=== PATIENT | male | born 1985 | race Caucasian/White ===

== ENCOUNTER 2021-09-06 21:04 | Emergency (ER) | payer BC ==
[2021-09-06] MEDS ORDERED: Morphine 4 MG/ML VIAL ONE (22:15)
[2021-09-06] MEDS ORDERED: Ondansetron PF 4 MG/2 ML Vial ONE (22:15)
[2021-09-06] MEDS ORDERED: HYDROmorphone 0.5 MG/0.5 ML SYRINGE ONE (22:17)
== END 2021-09-07 00:45 | disposition home or self-care (01) ==
LOC: CSHERS 21:04
DX: S09.90XA Unspecified injury of head, initial encounter (principal); M25.561 Pain in right knee; W19.XXXA Unspecified fall, initial encounter
CPT/HCPCS: 70450; 72125; 96374; 96375; J1170; J2270; J2405